=== PATIENT | female | born 1975 | race Caucasian/White ===

== ENCOUNTER 2021-01-06 21:26 | Emergency (ER) | payer OTHER ==
[~2021-01-06] VITALS: Ht 160 cm; Wt 59.9 kg
[~2021-01-06 21:26] MED LIST: CEPH-350 PO; HYDR-3194 PO; INSU100V8 SQ; LOSA1TAB22 PO; METF10007 PO
[2021-01-06 22:06] VITALS: BP 171/128
[2021-01-06] MEDS ORDERED: ZOFRAN ONE (22:22)
[2021-01-06 22:24] LABS: BASOPHIL # 0.1 10^3/uL (0.0-0.1); BASOPHIL % 0.4 % (0.0-0.2); EOSINOPHIL # 0.1 10^3/uL (0.0-0.2); EOSINOPHIL % 0.8 % (0.0-5.0); LYMPHOCYTES # 3.92 10^3/uL1 (1.0-4.8); LYMPHOCYTES % 30.4 % (24.0-44.0); MEAN CORP HGB 27.3 pg (26-34); MONOCYTES # 0.5 10^3/uL (0.3-0.8); MONOCYTES % 3.9 % (5.0-12.0); NEUTROPHIL # 8.3 10^3/uL (1.8-7.7); NEUTROPHILS % 64.3 % (41.0-85.0); PLATELET COUNT 597 10^3/uL (150-400); RED CELL DISTRIBUTION WIDTH 14.6 % (11.5-14.5)
--- NOTE | 2021-01-06 22:25 | ER.PDOC ---
General Chief Complaint: Nausea,Vomiting,Diarrhea Stated Complaint: VOMITING Time seen by MD: 22:22 Source: patient Exam Limitations: no limitations History of Present Illness Initial Comments , Nausea/vomiting and abdominal pain for the 3 days. No fever or chills. Severity/Quality: moderate, burning Abdominal Pain Onset Location: Periumbilical Associated Symptoms (vomiting): freq vomitng Allergies: Coded Allergies: cephalexin (Verified Allergy, Unknown, RASH, HIVES, 08/29/20) clindamycin (Verified Allergy, Unknown, 08/25/20) REACTION UNKNOWN Home Meds Active Scripts Cephalexin (KEFLEX) 500 Mg Capsule, 500 MG PO TID for 7 Days Prov:TIMO SLOAN MD 07/26/20 Insulin Glargine,Hum.rec.anlog (LANTUS) 100 Unit/1 Ml Vial, 25 UNIT SQ BID for 14 Days, #1 VIAL Prov:TIMO SLOAN MD 07/26/20 Hydralazine Hcl (HYDRALAZINE HCL) 25 Mg Tablet, 50 MG PO TID for 30 Days, #90 TAB Prov:TIMO SLOAN MD 07/26/20 Reported Medications Metformin Hcl (METFORMIN HCL) 1,000 Mg Tablet, 1000 MG PO BID 04/25/13 Losartan/Hydrochlorothiazide (LOSARTAN-HCTZ 100-25 MG TAB) 1 Each Tablet, 1 EACH PO DAILY 04/25/13 Vital Signs First Vital Signs Date Time Temp Pulse Resp B/P (MAP) Pulse Ox O2 Delivery O2 Flow Rate FiO2 01/06/21 22:06 97.7 111 18 99 Last Vital Signs Date Time Temp Pulse Resp B/P (MAP) Pulse Ox O2 Delivery O2 Flow Rate FiO2 01/06/21 22:06 97.7 111 18 99 Past Medical History Medical History: no pertinent history Surgical History: Family History Significant Family History: no pertinent family hx Social History Smoking: non-smoker Alcohol Use: none Drug Use: none Constitutional: no symptoms reported EENTM: no symptoms reported Respiratory: no symptoms reported Cardiovascular: no symptoms reported Gastrointestinal: see HPI Genitourinary: no symptoms reported All Other Systems: Reviewed and Negative Physical Exam General Appearance: No Apparent Distress, WD/WN Neck: Non-Tender, Full Range of Motion, Supple, Normal Inspection Respiratory: chest non-tender, lungs clear, normal breath sounds, no respiratory distress, no accessory muscle use Cardiovascular: Normal Peripheral Pulses, Regular Rate, Rhythm, No Edema, No Gallop, No JVD, No Murmur, Tachycardia Gastrointestinal: Normal Bowel Sounds, No Organomegaly, No Pulsatile Mass, Tenderness (mid abdomen) Back: Normal Inspection, No CVA Tenderness, No Vertebral Tenderness Extremities: Normal Range of Motion, Non-Tender, Normal Inspection, No Pedal Edema, No Calf Tenderness, Normal Capillary Refill, Pelvis Stable 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, No Motor/Sensory Deficits, Alert, Normal Mood/Affect, Oriented x 3 Skin: Normal Color, Warm/Dry Lymphatic: No Adenopathy Results/Orders Results/Orders Orders - DARON FERNÁNDEZ MD Cbc With Auto Diff (01/06/21 22:18) Comprehensive Metabolic Panel (01/06/21 22:18) Lipase (01/06/21 22:18) Urinalysis (01/06/21 22:18) Ct Abd/Pelvis Wo Iv Contrast (01/06/21 22:18) Lactic Acid(Ml) (01/06/21 22:18) Hcg Qualitative Serum (01/06/21 22:18) Ondansetron Hcl/Pf (Zofran) (01/06/21 22:22) 0.9 % Sodium Chloride (Ns 1000ml) (01/06/21 22:38) Ondansetron Hcl/Pf (Zofran) (01/06/21 22:38) Urine Culture (01/07/21 00:00) Vital Signs Date Time Temp Pulse Resp B/P (MAP) Pulse Ox O2 Delivery O2 Flow Rate FiO2 01/06/21 22:06 97.7 111 18 99 01/06/21 22:06 97.7 111 18 99 Administered Medications Medications (Trade) Dose Ordered Sig/Nora Route PRN Reason Start Time Stop Time Status Last Admin Dose Admin Ondansetron HCl (Zofran) 4 mg STAT STAT IV 01/06/21 22:38 01/06/21 22:40 DC 01/06/21 22:38 4 MG Sodium Chloride 1,000 ml @ 1,200 mls/hr Q50M STAT IV 01/06/21 22:38 01/06/21 23:27 DC 01/06/21 22:43 1,200 MLS/HR Laboratory Tests Test 01/06/21 00:00 01/06/21 21:48 Urine Collection Type CCMS Urine Color YELLOW Urine Appearance TURBID Urine Bilirubin NEGATIVE (NEGATIVE) Urine Ketones 15 mg/dL (NEGATIVE) H Urine Specific [place] 1.025 (1.005-1.030) Urine pH 5.5 (4.5-8.0) Urine Protein 100 mg/dL (NEGATIVE) H Urine Urobilinogen 0.2 E.U./dL (0.2) Urine Nitrate NEGATIVE (NEGATIVE) Urine Leukocyte Esterase NEGATIVE (NEGATIVE) Urine Glucose (Auto)(UA) 500 (NEGATIVE) H Urine Blood NEGATIVE (NEGATIVE) Urine RBC NONE SEEN RBC/HPF (NONE Urine WBC 0-2 WBC/HPF (0-2) Urine Squamous Epithelial Cells FEW #/HPF (FEW) Urine Amorphous Sediment MODERATE (NONE SEEN) Urine Bacteria MODERATE (NONE SEEN) H White Blood Count 12.9 10^3/uL (4.5-11.0) H Red Blood Count 4.65 10^6/uL (4.00-5.20) Hemoglobin 12.7 g/dL (12.0-15.0) Hematocrit 38.6 % (36.0-46.0) Mean Corpuscular Volume 83.0 fL (78-100) Mean Corpuscular Hemoglobin 27.3 pg (26-34) Mean Corpuscular Hemoglobin Concent 32.9 g/dL (33-36.5) L Red Cell Distribution Width 14.6 % (11.5-14.5) H Platelet Count 597 10^3/uL (150-400) H Mean Platelet Volume 10.6 fL (7.8-11.0) Neutrophils (%) (Auto) 64.3 % (41.0-85.0) Lymphocytes (%) (Auto) 30.4 % (24.0-44.0) Monocytes (%) (Auto) 3.9 % (5.0-12.0) L Neutrophils # (Auto) 8.3 10^3/uL (1.8-7.7) H Lymphocytes # (Auto) 3.92 10^3/uL1 (1.0-4.8) Monocytes # (Auto) 0.5 10^3/uL (0.3-0.8) Absolute Immature Granulocyte (auto 0.02 10^3 u/L (0-2) Absolute Eosinophils (auto) 0.1 10^3/uL (0.0-0.2) Immature Granulocytes % 0.20 % (0.00-0.50) Eosinophils % 0.8 % (0.0-5.0) Basophils % 0.4 % (0.0-0.2) H Basophils # 0.1 10^3/uL (0.0-0.1) Sodium Level 135 mmol/L (132-145) Potassium Level 4.2 mmol/L (3.6-5.2) Chloride Level 98.0 mmol/L (96-109) Carbon Dioxide Level 24.3 mmol/L (20.0-32) Anion Gap 16.9 Blood Urea Nitrogen 22 mg/dL (7-18) H Creatinine 1.43 mg/dL (0.59-1.40) H Estimated GFR () 48.0 (>/=60) Est GFR (CKD-EPI)(Non-Afr Pakistani) 39.7 (>/=60) BUN/Creatinine Ratio 15.0 Glucose Level 270 mg/dL (70-110) H Calcium Level 9.6 mg/dL (8.4-10.5) Total Bilirubin 0.4 mg/dL (0.2-1.0) Aspartate Amino Transferase (AST) 13 U/L (0-35) Alanine Aminotransferase (ALT) 26 U/L (12-78) Alkaline Phosphatase 125 U/L (50-136) Total Protein 8.7 g/dL (6.4-8.2) H Albumin 4.4 g/dL (3.4-5.0) Globulin 4.3 Albumin/Globulin Ratio 1.023 Lipase 89 U/L (114-286) L Serum HCG, Qualitative NEGATIVE (NEGATIVE) Progress Progress CT abdomen/pelvis: Stable nonobstructive right renal calculus. No hydronephrosis. 2. Concentric wall thickening of the urinary bladder. Correlate with urinalysis to exclude infectious cystitis. 3. Otherwise no acute findings in the abdomen or pelvis within the constraints of noncontrast technique. 4. Appendicolith noted without evidence of acute appendicitis. Other findings as above. Reviewed CT results and labs with the patient. She voiced understanding. She is feeling better after she had IV fluids and Zofran. Her nausea has resolved. She is ready to go home. She will also be treated for UTI. ER DEPART Departure Time of Disposition: 00:24 Disposition: 01 HOME / SELF CARE / HOMELESS Impression: Primary Impression: Nonspecific abdominal pain Additional Impressions: UTI (urinary tract infection) Hyperglycemia Condition: Improved Referrals: RUEL PEACOCK ZIGZAG TUNNEL ELASTIC OPERATOR (PCP) PRIMARY CARE PROVIDER Additional Instructions: Ciprofloxacin Start feeding with clear liquids and advance diet as tolerated Continue with antiemetic medication at home Follow-up with your PCP in 2 to 3 days Return to ED if worsening symptoms or concerns Duration or Time Spent with Pa: 60 min Problem Qualifiers Additional Impressions: UTI (urinary tract infection) Urinary tract infection type: site unspecified Hematuria presence: with hematuria Qualified Codes: N39.0 - Urinary tract infection, site not specified; R31.9 - Hematuria, unspecified DARON FERNÁNDEZ MD Jan 06, 2021 22:25
[2021-01-06 22:36] LABS: CALCIUM 9.6 mg/dL (8.4-10.5); CARBON DIOXIDE 24.3 mmol/L (20.0-32)
[2021-01-06] MEDS ORDERED: ZOFRAN IV STA (22:38)
[2021-01-06] MEDS ORDERED: NS 1000ML 1,000 ML IV STA (22:38)
--- NOTE | 2021-01-06 22:39 | NUR ---
Pt provided with cup for urine sample. States that she does not have to go at this time.
--- NOTE | 2021-01-06 23:09 | DIREP ---
PROCEDURE:CT ABDOMEN/PELVIS W/O CONTRAST COMPARISON:[facility], CT, CT ABD/PELVIS W/O, 07/21/2020, 07:53 PM. INDICATIONS:Mid abdominal pain TECHNIQUE:Axial images were created through the abdomen and pelvis without intravenous contrast material. No oral contrast was administered. Sagittal and coronal reconstructions were performed from source images. FINDINGS: LUNG BASES:Normal. No visible pulmonary or pleural disease. LIVER:Normal. No significant liver lesions are identified. BILIARY:Normal. No visible dilatation or calcification. PANCREAS:Normal. No lesion, fluid collection, ductal dilatation, or atrophy. SPLEEN:Normal. No enlargement or focal lesion. ADRENALS:Normal. No mass or enlargement. URINARY TRACT:There is a stable 3 mm nonobstructive calculus in the lower pole the right kidney. No left renal calculi or ureteral calculi are seen. No hydronephrosis. There is concentric wall thickening of the urinary bladder. AORTA/VASCULAR:Normal. No aneurysm. RETROPERITONEUM:Normal. No mass or adenopathy. BOWEL/MESENTERY:The appendix is visualized and contains an appendicolith but otherwise appears normal. There is no intestinal obstruction, free fluid, free air or mesenteric inflammatory changes. ABDOMINAL WALL:Normal. No mass or hernia. PELVIC ORGANS:Normal. No visible mass. Pelvic organs appropriate for patient age. Surgical clips from prior tubal ligation are again noted. BONES:Normal for age. No bony lesion or acute fracture. OTHER:Negative. CONCLUSION: 1. Stable nonobstructive right renal calculus. No hydronephrosis. 2. Concentric wall thickening of the urinary bladder. Correlate with urinalysis to exclude infectious cystitis. 3. Otherwise no acute findings in the abdomen or pelvis within the constraints of noncontrast technique. 4. Appendicolith noted without evidence of acute appendicitis. Other findings as above. Dictated by: Yobany Joseph M.D. on 01/06/2021 at 11:01 PM
--- NOTE | 2021-01-06 23:58 | NUR ---
Pt has been to the restroom but has not been able to void. RN to straight cath pt for urine. Last thing needed in pt workup.
[2021-01-07 00:15] LABS: BILIRUBIN,URINE NEGATIVE (NEGATIVE); UA COLOR YELLOW
[2021-01-07 00:16] LABS: UROBILINOGEN,URINE 0.2 E.U./dL (0.2)
[2021-01-07] MEDS ORDERED: CIPRO PO STA (00:22)
[2021-01-07] MEDS ORDERED: CIPRO ONE (00:27)
--- NOTE | 2021-01-07 00:30 | NUR ---
IV DC'D TIP INTACT, NO BLEEDING
[2021-01-07 00:35] VITALS: BP 158/62
== END 2021-01-07 00:35 | disposition home or self-care (01) ==
LOC: ER 21:26
DX: N39.0 Urinary tract infection, site not specified (principal); R73.9 Hyperglycemia, unspecified; Z79.899 Other long term (current) drug therapy; Z88.1 Allergy status to other antibiotic agents
CPT/HCPCS: 36415; 74176; 80053; 81001; 83605; 83690; 84703; 85025; 87086; 96361; 96374; 99284; J2405

== ENCOUNTER 2021-06-07 08:07 | Emergency (ER) | payer OTHER ==
[~2021-06-07] VITALS: Ht 160 cm; Wt 61.2 kg
[2021-06-07 08:23] VITALS: BP 209/142
--- NOTE | 2021-06-07 08:30 | NUR ---
ARRIVAL PATIENT ARRIVED TO [facility] AMBULATORY, C/O POSSIBLE URINARY TRACT INFECTION FOR THE PAST ONE WEEK, HAS BEEN ATTEMPTING TO TREAT HERSELF AT HOME WITH MINIMAL RELIEF, CAME TO THE ED FOR EVAL, DOCTOR REYEZ TO THE ROOM TO SEE PATIENT.
--- NOTE | 2021-06-07 08:35 | ER.PDOC ---
General Chief Complaint: Female Urogenital Problems Stated Complaint: NAUSEA TRAVEL OUT OF US: No Time seen by MD: 08:29 History of Present Illness Initial Comments 45-year-old female presents for evaluation of lower abdominal discomfort associated with nausea, vomiting. History of urinary tract infections. Symptoms have been present for 1 week. Last kidney stone was several years ago. Attempted to take nausea medicine at home but had emesis shortly thereafter. Nothing seems to make it better or worse. No reported fevers. No other complaints at this time. Allergies: Coded Allergies: cephalexin (Verified Allergy, Unknown, RASH, HIVES, 08/29/20) clindamycin (Verified Allergy, Unknown, 08/25/20) REACTION UNKNOWN Home Meds Active Scripts Cephalexin (KEFLEX) 500 Mg Capsule, 500 MG PO TID for 7 Days Prov:TIMO SLOAN MD 07/26/20 Insulin Glargine,Hum.rec.anlog (LANTUS) 100 Unit/1 Ml Vial, 25 UNIT SQ BID for 14 Days, #1 VIAL Prov:TIMO SLOAN MD 07/26/20 Hydralazine Hcl (HYDRALAZINE HCL) 25 Mg Tablet, 50 MG PO TID for 30 Days, #90 TA B Prov:TIMO SLOAN MD 07/26/20 Reported Medications Metformin Hcl (METFORMIN HCL) 1,000 Mg Tablet, 1000 MG PO BID 04/25/13 Losartan/Hydrochlorothiazide (LOSARTAN-HCTZ 100-25 MG TAB) 1 Each Tablet, 1 EACH PO DAILY 04/25/13 Past Medical History Medical History: diabetes, hypertension Surgical History: Social History Alcohol Use: none Drug Use: none Reviewed Nursing Reviewed: Vital Signs, Abn. Noted, Nursing Assessment Review of Systems Constitutional: see HPI EENTM: no symptoms reported Respiratory: no symptoms reported Cardiovascular: no symptoms reported Gastrointestinal: see HPI Genitourinary: see HPI Musculoskeletal: no symptoms reported Skin: no symptoms reported Psychiatric/Neurological: no symptoms reported Hematologic/Lymphatic: no symptoms reported Immunological/Allergic: no symptoms reported All Other Systems: Reviewed and Negative Physical Exam General Appearance: No Apparent Distress, WD/WN EENT: eyes nml inspection, nml ENT inspection Neck: Non-Tender, Full Range of Motion Respiratory: chest non-tender, lungs clear, normal breath sounds CVS: reg rate & rhythm, no murmur, no gallop, pulses nml Gastrointestinal: Normal Bowel Sounds, No Organomegaly, Tenderness (Mild suprapubic tenderness noted.) Back: Normal Inspection, No CVA Tenderness, No Vertebral Tenderness Extremities: Normal Range of Motion, Non-Tender, Normal Inspection Neurologic/Psychiatric: 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, No Motor/Sensory Deficits Skin: Normal Color, Warm/Dry Lymphatic: No Adenopathy Results/Orders Results/Orders Orders - PATRICK REYEZ DO Urinalysis (06/07/21 08:16) Urine Culture (06/07/21 08:30) Sulfamethoxazole/Trimethoprim (Bactrim D (06/07/21 09:05) Ondansetron (Zofran Odt) (06/07/21 09:09) Vital Signs Date Time Temp Pulse Resp B/P (MAP) Pulse Ox O2 Delivery O2 Flow Rate FiO2 06/07/21 08:23 98.3 114 18 06/07/21 08:23 98.3 114 18 209/142 (164) 100 Room Air 06/07/21 08:23 98.3 114 18 100 Laboratory Tests Test 06/07/21 08:30 Urine Collection Type UNKNOWN Urine Color YELLOW Urine Appearance CLOUDY Urine Bilirubin NEGATIVE (NEGATIVE) Urine Ketones 1+ (NEGATIVE) H Urine Specific [place] 1.020 (1.005-1.030) Urine pH 5.5 (4.5-8.0) Urine Protein 2+ (NEGATIVE) H Urine Urobilinogen 0.2 E.U./dL (0.2) Urine Nitrate NEGATIVE (NEGATIVE) Urine Leukocyte Esterase 1+ (NEGATIVE) H Urine Glucose (Auto)(UA) >=1000 mg/dL (NEGATIVE) H Urine Blood TRACE-INTACT (NEGATIVE) H Urine RBC 0-2 RBC/HPF (NONE SEEN) Urine WBC TooNumerousToCount WBC/HPF (0-2) Urine Squamous Epithelial Cells MODERATE (<=FEW) Urine Bacteria MANY (NONE SEEN) H Progress Progress Patient with gross infected urine. Will place on oral antibiotics, antiemetics have been prescribed. Recommended follow-up with primary care doctor. ER DEPART Departure Time of Disposition: 09:14 Disposition: 01 HOME / SELF CARE / HOMELESS Impression: Primary Impression: UTI (urinary tract infection) Condition: Improved Referrals: RUEL PEACOCK CAREER DEVELOPMENT ENGINEER (PCP) PRIMARY CARE PROVIDER Duration or Time Spent with Pa: 20 Problem Qualifiers Primary Impression: UTI (urinary tract infection) Urinary tract infection type: acute cystitis Hematuria presence: without hematuria Qualified Codes: N30.00 - Acute cystitis without hematuria PATRICK REYEZ DO Jun 07, 2021 08:35
[2021-06-07 08:45] LABS: BILIRUBIN,URINE NEGATIVE (NEGATIVE); UROBILINOGEN,URINE 0.2 E.U./dL (0.2)
[2021-06-07 09:07] VITALS: BP 206/130
--- NOTE | 2021-06-07 09:08 | NUR ---
BLOOD PRESSURE NOTIFIED DOCTOR REYEZ OF PATIENT INCREASED BLOOD PRESSURE, DENIES THE NEED TO TREAT AT THIS TIME.
[2021-06-07] MEDS ORDERED: ZOFRAN ODT ONE (09:09)
[2021-06-07] MEDS ORDERED: BACTRIM DS ONE (09:09)
[2021-06-07] MEDS: BACTRIM DS PO STA (09:09)
[2021-06-07] MEDS: ZOFRAN ODT SL STA (09:10)
== END 2021-06-07 09:22 | disposition home or self-care (01) ==
LOC: ER 08:07
DX: N39.0 Urinary tract infection, site not specified (principal); I10 Essential (primary) hypertension; E11.9 Type 2 diabetes mellitus without complications; Z79.4 Long term (current) use of insulin; Z79.899 Other long term (current) drug therapy; Z87.440 Personal history of urinary (tract) infections; Z87.442 Personal history of urinary calculi; Z88.1 Allergy status to other antibiotic agents
CPT/HCPCS: 81001; 87077; 87086; 99283

== ENCOUNTER 2021-12-04 22:43 | Inpatient (IN) | payer OTHER ==
[~2021-12-04] VITALS: Ht 160 cm; Wt 76.7 kg
[2021-12-04 23:09] VITALS: BP 199/81
[2021-12-04] MEDS ORDERED: LACTATED RINGERS IV STA (23:20)
--- NOTE | 2021-12-04 23:20 | ER.PDOC ---
General Chief Complaint: Back Pain/Injury Stated Complaint: LOW BACK PAIN, CHILLS Time seen by MD: 23:16 Source: patient, family Exam Limitations: no limitations History of Present Illness Initial Comments 45F with Dysuria, freq, urgency, Rt Flank Pain with fever x 1 day. Hx Recurrent UTI's and Rt renal calculi. Nausea and emesis x 1. No diarrhea. Timing/Duration: constant, yesterday Severity/Quality: mild, moderate Radiation: other Associated Symptoms: fever Prior symptoms/Treatment: Similar symptoms previous Allergies: Coded Allergies: cephalexin (Verified Allergy, Unknown, RASH, HIVES, 08/29/20) clindamycin (Verified Allergy, Unknown, 08/25/20) REACTION UNKNOWN Home Meds Active Scripts Cephalexin (KEFLEX) 500 Mg Capsule, 500 MG PO TID for 7 Days Prov:TIMO SLOAN MD 07/26/20 Insulin Glargine,Hum.rec.anlog (LANTUS) 100 Unit/1 Ml Vial, 25 UNIT SQ BID for 14 Days, #1 VIAL Prov:TIMO SLOAN MD 07/26/20 Hydralazine Hcl (HYDRALAZINE HCL) 25 Mg Tablet, 50 MG PO TID for 30 Days, #90 TAB Prov:TIMO SLOAN MD 07/26/20 Reported Medications Metformin Hcl (METFORMIN HCL) 1,000 Mg Tablet, 1000 MG PO BID 04/25/13 Losartan/Hydrochlorothiazide (LOSARTAN-HCTZ 100-25 MG TAB) 1 Each Tablet, 1 EACH PO DAILY 04/25/13 Past Medical History Medical History: diabetes, GERD, hypertension, other Surgical History: Family History Significant Family History: no pertinent family hx Social History Smoking: non-smoker Drug Use: none Reviewed Nursing Reviewed: Vital Signs, Abn. Noted, Nursing Assessment Review of Systems Constitutional: denies no symptoms reported, denies see HPI, denies chills, denies diaphoresis, denies fever, denies malaise, denies weakness, denies other EENTM: denies no symptoms reported, denies see HPI, denies eye pain, denies blurred vision, denies tearing, denies double vision, denies ear pain, denies ear discharge, denies nose pain, denies nose congestion, denies throat pain, denies throat swelling, denies mouth pain, denies mouth swelling, denies other Respiratory: denies no symptoms reported, denies see HPI, denies cough, denies orthopnea, denies shortness of breath, denies stridor, denies wheezing, denies other Cardiovascular: denies no symptoms reported, denies see HPI, denies chest pain, denies edema, denies palpitations, denies syncope, denies other Gastrointestinal: nausea, vomiting Genitourinary: see HPI, dysuria, frequency, pain Musculoskeletal: see HPI Skin: denies no symptoms reported, denies see HPI, denies change in color, denies change in hair/nails, denies dryness, denies lesions, denies lumps, denies rash, denies other Psychiatric/Neurological: denies no symptoms reported, denies see HPI, denies anxiety, denies depressed, denies emotional problems, denies headache, denies numbness, denies paresthesia, denies pre-existing deficit, denies seizure, denies tingling, denies tremors, denies weakness, denies other All Other Systems: Reviewed and Negative Physical Exam General Appearance: Mild Distress HEENT: PERRL/EOMI, Normal ENT Inspection Neck: Non-Tender Cardiovascular/Respiratory: Regular Rate, Rhythm Gastrointestinal: Normal Bowel Sounds, Soft Back: Normal Inspection, CVA Tenderness (R) Extremities: No Evidence of Injury Neuro/Psych: Alert, esol teacher nml/symmetrical, mood/effect nml Skin: Normal Color Results/Orders Results/Orders Orders - ROXIE JOHN MD Ringer's Solution,Lactated (Lactated Rin (12/04/21 23:29) Urinalysis (12/04/21 23:20) Ringer's Solution,Lactated (Lactated Rin (12/04/21 23:20) Ketorolac Tromethamine (Toradol) (12/04/21 23:30) Cbc W/O Diff (12/04/21 23:20) Comprehensive Metabolic Panel (12/04/21 23:20) Ceftriaxone Sodium (Rocephin) (12/04/21 23:30) Ketorolac Tromethamine (Toradol) (12/04/21 23:29) Ceftriaxone Sodium (Rocephin) (12/04/21 23:30) 0.9 % Sodium Chloride (Ns 100ml) (12/04/21 23:31) Hcg Urine (12/04/21 23:35) Urine Culture (12/04/21 23:35) Ringer's Solution,Lactated (Lactated Rin (12/05/21 00:03) Insulin Regular, Human (Humulin R) (12/05/21 00:19) Drug Scrn Med W Confirmation (12/05/21 00:22) Ct Abd/Pelvis Wo Iv Contrast (12/04/21 23:20) Insulin Regular, Human (Humulin R) (12/05/21 00:31) Covid19 Antigen Demetra Hazel (12/05/21 00:51) Vital Signs Date Time Temp Pulse Resp B/P (MAP) Pulse Ox O2 Delivery O2 Flow Rate FiO2 12/05/21 01:10 101.1 124 20 147/84 (105) 99 Room Air* 0 21 12/05/21 00:10 101.1 125 20 149/82 (104) 94 Room Air* 0 21 12/04/21 23:09 103.0 134 22 12/04/21 23:09 103.0 134 22 96 12/04/21 23:09 103.0 134 22 199/81 (120) 96 Room Air* 0 21 Administered Medications Medications (Trade) Dose Ordered Sig/Nora Route PRN Reason Start Time Stop Time Status Last Admin Dose Admin Ceftriaxone Sodium 1000 mg/ Sodium Chloride 100 ml @ 200 mls/hr OT ONCE IV 12/04/21 23:30 12/04/21 23:59 DC 12/04/21 23:54 200 MLS/HR Insulin Human Regular (Humulin R) 12 unit STAT STAT IV 12/05/21 00:31 12/05/21 00:34 DC 12/05/21 00:36 12 UNIT Ketorolac Tromethamine (Toradol) 30 mg OT ONCE IV 12/04/21 23:30 12/04/21 23:31 DC 12/04/21 23:53 30 MG Laboratory Tests Test 12/04/21 23:35 12/05/21 00:00 12/05/21 00:52 White Blood Count 31.7 10^3/uL (4.5-11.0) *H Red Blood Count 3.68 10^6/uL (4.00-5.20) L Hemoglobin 7.7 g/dL (12.0-15.0) L Hematocrit 25.9 % (36.0-46.0) L Mean Corpuscular Volume 70.4 fL (78-100) L Mean Corpuscular Hemoglobin 20.9 pg (26-34) L Mean Corpuscular Hemoglobin Concent 29.7 g/dL (33-36.5) L Red Cell Distribution Width 17.8 % (11.5-14.5) H Platelet Count 791 10^3/uL (150-400) H Mean Platelet Volume 9.5 fL (7.8-11.0) Urine Collection Type RANDOM Urine Color YELLOW Urine Appearance TURBID Urine Bilirubin NEGATIVE (NEGATIVE) Urine Ketones TRACE (NEGATIVE) H Urine Specific [place] 1.010 (1.005-1.030) Urine pH 5.5 (4.5-8.0) Urine Protein 2+ (NEGATIVE) H Urine Urobilinogen 0.2 E.U./dL (0.2) Urine Nitrate POSITIVE (NEGATIVE) H Urine Leukocyte Esterase 1+ (NEGATIVE) H Urine Glucose (Auto)(UA) 500 mg/dL (NEGATIVE) H Urine Blood 1+ (NEGATIVE) H Urine RBC 0-2 RBC/HPF (NONE SEEN) Urine WBC TooNumerousToCount WBC/HPF (0-2) Urine Squamous Epithelial Cells MODERATE (<=FEW) Urine Bacteria MANY (NONE SEEN) H Urine HCG, Qualitative NEGATIVE (NEGATIVE) Sodium Level 126 mmol/L (132-145) L Potassium Level 4.4 mmol/L (3.6-5.2) Chloride Level 89.0 mmol/L (96-109) L Carbon Dioxide Level 22.0 mmol/L (20.0-32) Anion Gap 19.4 Blood Urea Nitrogen 27 mg/dL (7-18) H Creatinine 1.68 mg/dL (0.59-1.40) H Estimated GFR () 39.9 (>/=60) Est GFR (CKD-EPI)(Non-Afr Faroese) 32.9 (>/=60) BUN/Creatinine Ratio 16.0 Glucose Level 462 mg/dL (70-110) *H Calcium Level 8.7 mg/dL (8.4-10.5) Total Bilirubin 0.5 mg/dL (0.2-1.0) Aspartate Amino Transferase (AST) 8 U/L (0-35) Alanine Aminotransferase (ALT) 20 U/L (12-78) Alkaline Phosphatase 166 U/L (50-136) H Total Protein 7.6 g/dL (6.4-8.2) Albumin 3.1 g/dL (3.4-5.0) L Globulin 4.5 Albumin/Globulin Ratio 0.688 Urine Opiates Screen NEGATIVE (c/o300ng/mL) Urine Methadone Screen NEGATIVE (c/o300ng/mL) Urine Barbiturates Screen NEGATIVE (c/o200ng/mL) Urine Phencyclidine Screen NEGATIVE (c/o 25ng/mL) Ur Amphetamine/Methamphetamine NEGATIVE (gq4885lb/mL) Urine MDMA Screen (Ecstasy) NEGATIVE (c/o300ng/mL) Urine Benzodiazepines Screen NEGATIVE (c/o200ng/mL) Urine Cocaine Metabolite Screen NEGATIVE (c/o300ng/mL) Ur Tetrahydrocannabinol (THC) Scrn NEGATIVE (c/o 50ng/mL) Segmented Neutrophils 91 % (31-76) H Lymphocytes 3 % (25-36) L Monocytes 6 % (3-9) Platelet Estimate INCREASED Platelet Morphology NORMAL SARS-CoV-2 Antigen (Rapid) NEGATIVE (NEGATIVE) Progress Progress Temp 103 on admit to ER and 101.7 after 30 min. Labs WBC 31. H/H low 7/25. Platelets 791 Chem 12 shows Hyponatremia 126. Anion Gap 19. Glucose 476 UA suggestive of UTI. Urine and blodd Cultures ordered CT shows bilat mild hydronephrosis and stable Rt renal calculi. Pt clinically stable however with Fever and Leucocytosis will admit for further care. Case d/w Dr Schumacher (hospitalist) A - Pyelonephritis with Mild Hydroureters. r/o Sepsis Anemia DM with Hyperglycemia Azotemia Hyponatremia P - Pt was given 2 lit LR IVF. Rocephin 1 gm IV. Humulin R 12u IV Admit to Inpatient for further care under Dr Schumacher EKG/XRAY/CT/US CT Comments: bilat hydronephrosis, Rt renal calculi ER DEPART Departure Time of Disposition: 01:39 Disposition: 09 ADMITTED INPATIENT Impression: Primary Impression: Pyelonephritis Additional Impressions: Anemia Hyponatremia Azotemia Condition: Stable Referrals: RUEL PEACOCK FAMILY COURT COUNSELLOR (PCP) PRIMARY CARE PROVIDER Duration or Time Spent with Pa: 3 hrs Return to Work/School Can a patient return to work?: No Can a patient return to school: No Problem Qualifiers ROXIE JOHN MD December 04, 2021 23:20
[2021-12-04] MEDS ORDERED: LACTATED RINGERS 1,000 ML ONE (23:29)
[2021-12-04] MEDS ORDERED: TORADOL ONE (23:29)
[2021-12-04] MEDS ORDERED: TORADOL IV ONE (23:30)
[2021-12-04] MEDS ORDERED: ROCEPHIN 1,000 MG in NS 100ML 100 ML IV ONE (23:30)
[2021-12-04] MEDS ORDERED: ROCEPHIN ONE (23:30)
[2021-12-04] MEDS ORDERED: NS 100ML 100 ML IV ONE (23:31)
[2021-12-04 23:52] LABS: BILIRUBIN,URINE NEGATIVE (NEGATIVE); UROBILINOGEN,URINE 0.2 E.U./dL (0.2)
[2021-12-04 23:58] LABS: MEAN CORP HGB 20.9 pg (26-34); RED CELL DISTRIBUTION WIDTH 17.8 % (11.5-14.5)
[2021-12-05] VITALS (8 sets, daily range): BP systolic 114–165; BP diastolic 77–95
[2021-12-05] MEDS ORDERED: LACTATED RINGERS 1,000 ML ONE (00:03)
--- NOTE | 2021-12-05 00:17 | NUR ---
TO CT PATIENT TO CT VIA WHEELCHAIR
[2021-12-05] MEDS ORDERED: HUMULIN R ONE (00:19)
[2021-12-05] MEDS ORDERED: HUMULIN R IV STA (00:31)
[2021-12-05 00:36] LABS: LYMPHOCYTE 3 % (25-36); MONOCYTE 6 % (3-9); SEGMENTED NEUTROPHILS 91 % (31-76)
--- NOTE | 2021-12-05 01:24 | DIREP ---
PROCEDURE:CT ABDOMEN/PELVIS W/O CONTRAST COMPARISON:[facility], CT, CT ABD/PELVIS W/O, 01/06/2021, 10:47 PM. INDICATIONS:low back pain TECHNIQUE:Axial images were created through the abdomen and pelvis without intravenous contrast material. No oral contrast was administered. Sagittal and coronal reconstructions were performed from source images. FINDINGS: LUNG BASES:Normal. No visible pulmonary or pleural disease. LIVER:Normal. No significant liver lesions are identified. BILIARY:Normal. No visible dilatation or calcification. PANCREAS:Normal. No lesion, fluid collection, ductal dilatation, or atrophy. SPLEEN:Normal. No enlargement or focal lesion. ADRENALS:Normal. No mass or enlargement. URINARY TRACT:There is a stable 2-3 mm nonobstructive calculus in the lower pole the right kidney. No left renal calculi or ureteral calculi are seen. Mild bilateral hydronephrosis. There is moderate distention of the urinary bladder. AORTA/VASCULAR:Normal. No aneurysm. RETROPERITONEUM:Normal. No mass or adenopathy. BOWEL/MESENTERY:The appendix is visualized and appears normal. There is no intestinal obstruction, free fluid, free air or mesenteric inflammatory changes. ABDOMINAL WALL:Normal. No mass or hernia. PELVIC ORGANS:Normal. No visible mass. Pelvic organs appropriate for patient age. Surgical clips from prior tubal ligation are again noted. BONES:Subacute left 6th through 8th rib fracture deformities. No aggressive osseous lesion. OTHER:Noncontrast technique decreases diagnostic sensitivity. CONCLUSION: 1. Mild bilateral hydronephrosis which may be secondary to moderate urinary bladder distension. Stable right lower pole renal calculus. No left renal or ureteral calculi are seen. 2. Otherwise no acute findings in the abdomen or pelvis within the constraints of noncontrast technique. 3. Subacute left rib fracture deformities. Dictated by: Yobany Joseph M.D. on 12/05/2021 at 01:16 AM
--- NOTE | 2021-12-05 01:46 | NUR ---
REPORT TO [facility] GIVEN TO LAUREN PHILLIPS
--- NOTE | 2021-12-05 03:10 | NUR ---
PT IS COMPLAINING OF DISCOMFORT TO LOWER ABDOMEN AND FEELS LIKE BLADDER IS DISTENDED. UPON ASSESSMENT, BLADDER WAS SIGNIFICANTLY DISTENDED. BLADDER SCANNER WAS USED AND FOUND 664MLS. DR HURLEY CALLED AT THIS TIME AND HAS ORDERED A STRAIGHT CATH. ALSO HAS ORDERED MORPHINE 2MG IV Q6 PRN FOR PAIN 7-10.
[2021-12-05] MEDS: MORPHINE SULFATE IV PRN ×2 (06:05→17:41)
--- NOTE | 2021-12-05 06:13 | NUR ---
PT TEMP IS 100.[address] HURLEY WAS CALLED AND HAS ORDERED TYLENOL 650MG PO Q4 PRN FOR FEVER.
[2021-12-05] MEDS ORDERED: TYLENOL PO PRN (06:30)
[2021-12-05] MEDS ORDERED: GABA600T7 PO (07:20)
[2021-12-05] MEDS ORDERED: LISI20TA21 PO (07:20)
[2021-12-05] MEDS ORDERED: INSU300I SQ (07:20)
[2021-12-05] MEDS ORDERED: TYLENOL PO ONE ×2 (08:04→08:30)
--- NOTE | 2021-12-05 08:04 | NUR ---
DR DR BYRD ON UNIT AND NOTIFIED OF TEMP 102.5. RECEIVED ORDER FOR TYLENOL 500MG PO ONE TIME STAT FOR TEMP OVER 100.5.
[2021-12-05] MEDS ORDERED: NS 1000ML 1,000 ML IV ONE ×2 (08:30→09:30)
[2021-12-05] MEDS: LEVAQUIN 100 ML IV SCH (08:47)
[2021-12-05] MEDS: LANTUS SQ SCH (08:47)
--- NOTE | 2021-12-05 09:25 | PCM.HP ---
History of Present Illness Reason for Visit: (1) Pyelonephritis ICD Code: N12 - Tubulo-interstitial nephritis, not specified as acute or chronic SNOMED: 43021305 Hx of Present Illness 45-year-old female with previous history of diabetes, nephrolithiasis, recurrent UTIs, hypertension and diabetic neuropathy presented to ER with complaints of feeling unwell for last 2 days fever starting yesterday associated with severe chills and right-sided abdominal and flank pain. She also had 1 episode of nausea and vomiting at presentation. This was associated with dysuria, frequency, urgency and hesitancy. She denies any chest pain, cough, shortness of breath, headache, seizures, diarrhea or constipation. She endorses having a wound on her right sole of foot for a long time. She was seen in the ER and given 2 L fluid, blood cultures urine culture sent and IV antibiotics started and admitted for further management. Past Medical History PMH-Cardiac: (1) GERD (gastroesophageal reflux disease) ICD Code: K21.9 - Gastro-esophageal reflux disease without esophagitis SNOMED: 150092085 (2) Diabetes ICD Code: E11.9 - Type 2 diabetes mellitus without complications SNOMED: 42550693 (3) Hypertension ICD Code: I10 - Essential (primary) hypertension SNOMED: 41560241 Hx Last Menstrual Period: NOVEMBER 09 Past Family History: (1) CHF (congestive heart failure) ICD Code: I50.9 - Heart failure, unspecified SNOMED: 85970877 (2) CAD (coronary artery disease) ICD Code: I25.10 - Atherosclerotic heart disease of [place] coronary artery without angina pectoris SNOMED: 55546163 (3) Diabetes ICD Code: E11.9 - Type 2 diabetes mellitus without complications SNOMED: 37199099 Past Social History Past Social Hx:Smoke: (1) Does not drink alcohol ICD Code: Z78.9 - Other specified health status SNOMED: 758954757 (2) Does not smoke ICD Code: Z78.9 - Other specified health status SNOMED: 9713933 Travel History [place]OL[place] RISK:Travel to/contact w: No Review of Systems Constitutional: Fever, Chills, Sweats, Weakness, Malaise Eyes: No: Pain, Vision change, Conjunctivae inflammation, Eyelid inflammation, Other, Redness ENT: No: Ear pain, Ear discharge, Nose pain, Nose discharge, Nose congestion, Mouth pain, Mouth swelling, Throat pain, Throat swelling, Other Respiratory: No: Cough, Dry, Shortness of breath, SOB with excertion, Wheezing, Hemoptysis, Pleuritic Pain, Sputum, Wheezing, Other Cardiovascular: No: Chest Pain, Palpitations, Orthopnea, Paroxysmal Noc. Dyspnea, Edema, Lt Headedness, Other Gastrointestinal: Nausea, Vomiting; No: Abdominal Pain, Diarrhea, Constipation, Melena, Hematochezia, Other Genitourinary: Dysuria, Frequency; No Incontinence, No Hematuria, No Retention, No Other Musculoskeletal: No: other, neck pain, shoulder pain, arm pain, back pain, hand pain, leg pain, foot pain Skin: No: Rash, Lesions, Jaundice, Bruising, Other Neurological: No: Weakness, Numbness, Incoordination, Change in speech, Confusion, Seizures, Other Allergies: Coded Allergies: cephalexin (Verified Allergy, Unknown, RASH, HIVES, 08/29/20) clindamycin (Verified Allergy, Unknown, 08/25/20) REACTION UNKNOWN Scheduled Cephalexin (Keflex), 500 MG PO TID Gabapentin (Gabapentin), 1 TAB PO BID, (Reported) Losartan/Hydrochlorothiazide (Losartan-Hctz 100-25 Mg Tab), 1 EACH PO DAILY, (Reported) Metformin Hcl (Metformin Hcl), 1,000 MG PO BID, (Reported) Discontinued Medications Hydralazine Hcl (Hydralazine Hcl), 50 MG PO TID Discontinued Reason: Discontinue Insulin Glargine,Hum.rec.anlog (Lantus), 25 UNIT SQ BID Discontinued Reason: Discontinue Insulin Glargine,Hum.rec.anlog (Toujeo Solostar), 30 UNIT SQ DAILY24, (Reported) Discontinued Reason: Cancel Lisinopril (Lisinopril), 1 TAB PO DAILY, (Reported) Discontinued Reason: HOLD VTE VTE Risk Total Score: >5 VTE Risk Score VTE Risk: Score 0-1 = Low Risk (Aggressive mobilization; early ambulation; no VTE prophylaxis required) Score 2: Moderate Risk (Intermittent/Pneumatic Compression Device OR Lovenox/Heparin/Coumadin) Score 3-4: High Risk (Intermittent/Pneumatic Compression Device AND Lovenox/Heparin/Coumadin) Score > or =5: Highest Risk (Intermittent/Pneumatic Compression Device AND Lovenox/Heparin/Coumadin) Antico:Hep/LMWH/Coum/Xarelto: Yes Mechanical device ordered: No VTE VTE Present on Admission: No Currently receiving anticoagul: No VTE Risk Total Score: >5 Exam Vital Signs Vital Signs Date Time Temp Pulse Resp B/P (MAP) Pulse Ox O2 Delivery O2 Flow Rate FiO2 12/05/21 09:02 100.1 Room Air* 0 21 12/05/21 07:37 120 18 128/80 (96) 93 General Appearance: Alert, Oriented X3, Cooperative, No acute distress HEENT: Atraumatic, PERRLA, EOMI, Mucous membr. moist/pink Respiratory: Clear to auscultation, Normal air movement Cardiovascular: Regular rate, Normal S1, Normal S2, No murmurs Abdominal: Normal bowel sounds, Soft, No hepatospenomegaly, Other (Lower abdominal tenderness mild, no CVA tenderness) Extremities: No clubbing, No cyanosis, No edema, Normal pulses Skin: No rash, No breakdown, No lesions, Breakdown (Wound on right sole of foot) Neuro: Normal speech, Strength at 5/5 X4 ext, Normal tone Psych/Mental Status: Mood NL Assessment/Plan Assessment/Plan Assessment/Plan 45-year-old female with previous history of diabetes, nephrolithiasis, recurrent UTIs, hypertension and diabetic neuropathy presented to ER with complaints of feeling unwell for last 2 days fever starting yesterday associated with severe chills and right-sided abdominal and flank pain associated with dysuria, frequency, urgency and hesitancy. Sepsis: Patient was in sepsis at presentation with fever, tachycardia, WBC count of 31.7 at presentation. She received 2 L IV fluid and IV ceftriaxone 1 g x 1 and was admitted for further management. Acute Pyelonephritis : Given her history of recurrent UTIs, diabetes, nephrolithiasis and symptoms of dysuria, hesitancy, fever and chills she has acute pyelonephritis. We will start her on IV hydration normal saline 100 cc/h in addition to IV levofloxacin 500 mg daily. Her urine and blood cultures were sent from the ER and we will be waiting for the sensitivity results. Right-sided nephrolithiasis and mild bilateral hydronephrosis: On CT scan patient has right-sided 2 to 3 mm stable lower pole renal calculus with mild b ilateral hydronephrosis. Since this is not causing acute obstruction at this time we will set up follow-up appointment with urology at discharge. Patient prefers Dr. Mccann in [place] and we will set up an appointment at the time of discharge to follow-up with him. BRYAN: Patient had creatinine of 1.68 at presentation which is likely higher than her baseline. It is hard to know if it is BRYAN or CKD since baseline creatinine is not known we will repeat it tomorrow to see if it resolves. DM with Hyperglycemia: Patient had very high blood glucose levels of 462 at presentation. Lantus and sliding scale insulin has been started and will be adjusted based on the glucose readings. Hyponatremia: Patient has received IV fluids and we will monitor sodium levels for improvement. Right-sided wound on sole of foot: Wound care will be consulted Depression and previous suicidal ideation history: Psychiatry will be consulted DVT prophylaxis: We will start her on unfractionated heparin 8 hourly due to BRYAN. CODE STATUS: Full code Disposition: Home when ready CARSON BYRD MD December 05, 2021 09:25
[2021-12-05] MEDS: NEURONTIN PO SCH ×2 (09:30→21:16)
[2021-12-05] MEDS: NS 1000ML 1,000 ML IV SCH ×2 (10:00→21:15)
--- NOTE | 2021-12-05 11:12 | NUR ---
SS/PSYCH EVAL: SW VISITED WITH PT REGARDING CONSULT. PT STATED SHE HAS BATTLED WITH DEPRESSION FOR YEARS. PT REPORTS HER SON MOVED OUT IN MAY AND HE WAS HER BEST FRIEND AND IT HAS BEEN HARD BECAUSE SHE DOESN'T TALK TO HIM MUCH. PT REPORTS HE MOVED IN WITH HIS GRANDMOTHER TO HELP HER OUT SINCE HIS GRANDPA RECENTLY PASSED. PT REPORTS HER DECLINE AND HEALTH AND JUST "EVERYTHING CAUGHT UP AT ONCE AND I FELT OVERWHELMED". PT REPORTS SHE HAS HAD PASSIVE SUICIDAL THOUGHTS BUT WOULD NEVER ACT ON IT. PT REPORTS "I HAVE TOO MUCH TO LIVE FOR. I JUST GOT A NEW BABY (KITTEN) AND IN DECEMBER FOR MY SO AND MY 18TH ANNIVERSARY WE ARE FINALLY GOING TO GET ". PT REPORTS SHE HAS A GREAT SUPPORT SYSTEM AND HER SISTER WILL TAKE HER TO [facility] APPOINTMENTS OR WHEREVER SHE NEEDS TO GO. PT REPORTS SHE HAS GOOD RX IN PLACE AT [facility]. PT REPORTS SHE HAS SEEN A PSYCHOLOGIST ONCE IN THE PAST 20+ YEARS AGO BUT IT DIDN'T GO WELL AND HE LIED ON HER AND SHE LOST HER KIDS. PT REPORTS SHE HAS HAD A LOT HAPPEN IN HER LIFE BUT FEELS LIKE SHE IS IN A GOOD PLACE BUT JUST EVERYTHING "HIT AT ONCE". SW PROVIDED COMPLETE COMMUNITY RESOURCE GUIDE LIST AND EDUCATED PT ON NUMEROUS COMMUNITY RESOURCES THAT COULD HELP HER. PT CURRENTLY DENIES SI/HI/AVH AND DOES NOT THINK SHE NEEDS PSYCH SERVICES AT THIS TIME. SW TO CONTINUE TO FOLLOW AND MONITOR SS/PSYCH NEEDS. SHYANNE LET Hedy VASQUES CM AND NURSING STAFF KNOW OF FINDINGS.
[2021-12-05] MEDS: ZESTRIL PO SCH (11:26)
[2021-12-05] MEDS ORDERED: HUMALOG SQ ONE (11:30)
[2021-12-05] MEDS: HUMULIN R SQ SCH ×3 (11:30→21:00)
--- NOTE | 2021-12-05 12:29 | NUR ---
s/s not given per dr recinos
[2021-12-05] MEDS: HEPARIN SQ SCH ×2 (13:50→21:16)
--- NOTE | 2021-12-05 13:58 | NUR ---
DISCHARGE PLAN - SELF CARE W/APPT - PCP & UROLOGY CM VISITED WITH PATIENT THIS AM PRIOR TO ID MEETING AND WITH DR BYRD. PATIENT CURRENTLY [email or web address]@HOME WITH S.O. AND IND WITH ADL - PATIENT SEE'S SCOTTIE PEACOCK NP FOR PCP. PATIENT DENIES HAVING OR NEEDING ANY DME@THIS TIME. DR BYRD REQUESTING PATIENT HAVE F/U APPT WITH UROLOGY AFTER DISCHARGE. PATIENT REQUEST TO SEE UROLOGIST IN [place] - DR VAIL. PATIENT AGREEABLE FOR CM TO MAKE APPT WITH UROLOGIST AND PCP. PATIENT REQUEST CM MAKE F/U APPT AFTER THE FIRST OF THE MONTH DUE TO SHE GETS MONEY@THE FIRST OF THE MONTH AND CAN PAY FOR APPT. CM CONTACTED DR VAIL'S OFFICE IN [place] AND EARLIEST APPT IS JANUARY 23, 2022@1615. APPT SET UP FOR THAT TIME. PATIENT IS ESTABLISHED@DR VAIL'S OFFICE. CM NOTIFIED DR BYRD OF APPT NOT AVAILABLE UNTIL JANUARY [address] BYRD AGREEABLE WITH F/U APPT TIME. CM CONTACTED [facility] AND FOLLOW UP APPT MADE WITH SCOTTIE PEACOCK NP FOR DECEMBER 16, 2021@1020. CM UPDATED PATIENT OF APPT TIMES AND UPDATED PATIENT VISIT REPORT TO INCLUDE APPT'S AND UPDATED PATIENT'S MARKER BOARD IN ROOM. CM WILL CONTINUE TO FOLLOW.
[2021-12-05] MEDS ORDERED: HUMULIN R SQ ONE (14:00)
[2021-12-05] MEDS: TYLENOL PO PRN (19:38)
--- NOTE | 2021-12-05 19:40 | NUR ---
OXYGEN SATURATION AT PM VITALS O2 SAT WAS 79-85% ON ROOM AIR, PLACED ON 2L NC, NOTIFIED RT JACKSON AND DR AMEZCUA. WILL REASSESS @ 1950.
--- NOTE | 2021-12-05 19:58 | NUR ---
OXYGEN REASSESSMENT 96% ON 2L NC AT REASSESSMENT.
--- NOTE | 2021-12-05 20:13 | NUR ---
DR AMEZCUA ORDERS REC 1V CHEST XRAY - STAT. ORDER PLACED BY THIS NURSE. ((NOTIFIED RADIOLOGY. RADIOLOGY HAS 2 PRIOR STAT ORDERS AND WILL BE HERE MARNIE))
--- NOTE | 2021-12-05 20:21 | NUR ---
EDUARDO LUCERO AT BEDSIDE.
--- NOTE | 2021-12-05 21:06 | DIREP ---
PROCEDURE:CHEST 1 VIEW COMPARISON:[facility], CR, XRAY CHEST SINGLE VW, 07/21/2020, 06:11 PM. [facility], CR, XRAY CHEST SINGLE VW, 06/02/2020, 05:35 PM. INDICATIONS:DECREASED OXYGEN SATURATION FINDINGS: LUNGS/PLEURA:Shallow inspiration with crowding of the pulmonary vascular markings. No focal consolidation. No effusions. VASCULATURE:Normal. Unremarkable pulmonary vasculature. CARDIAC:Normal. No cardiac silhouette abnormality or cardiomegaly. MEDIASTINUM:Normal. No visible mass or adenopathy. BONES:Normal. No fracture or visible bony lesion. OTHER:Negative. CONCLUSION:No significant change from the prior radiograph. Stable findings as above. Dictated by: Fidel Crump MD on 12/05/2021 at 09:04 PM
[2021-12-06 00:47] VITALS: BP 140/81
[2021-12-06 04:44] VITALS: BP 195/103
--- NOTE | 2021-12-06 05:00 | NUR ---
B/P CURRENTLY 195/103. NOTIFIED DR AMEZCUA VIA TELEPHONE, REC ORDERS FOR 20MG IV HYDRALAZINE Q6PRN FOR SBP>170 OR DBP>105, FIRST DOSE NOW. ORDERS CARRIED OUT BY THIS NURSE.
[2021-12-06] MEDS: NS 1000ML 1,000 ML IV SCH ×3 (05:12→14:40)
[2021-12-06] MEDS: HEPARIN SQ SCH ×2 (05:12→14:39)
[2021-12-06 05:19] LABS: MEAN CORP HGB 21.2 pg (26-34); RED CELL DISTRIBUTION WIDTH 18.3 % (11.5-14.5)
[2021-12-06 05:24] LABS: CARBON DIOXIDE 22.6 mmol/L (20.0-32)
[2021-12-06] MEDS ORDERED: APRESOLINE IV PRN (05:30)
--- NOTE | 2021-12-06 05:30 | NUR ---
B/P REASSESSMENT POST 20MG IV HYDRALAZINE B/P TRENDING STPEHY 150/91 AT THIS TIME.
[2021-12-06] MEDS: HUMULIN R SQ SCH ×2 (06:53→11:12)
[2021-12-06 07:37] VITALS: BP 144/80
[2021-12-06] MEDS: LANTUS SQ SCH (08:31)
[2021-12-06] MEDS: LEVAQUIN 100 ML IV SCH (08:32)
[2021-12-06] MEDS: NEURONTIN PO SCH (08:33)
[2021-12-06] MEDS: ZESTRIL PO SCH (08:33)
[2021-12-06] MEDS: TYLENOL PO PRN (10:57)
--- NOTE | 2021-12-06 10:59 | NUR ---
tylenol 1000mg po given for temp per prn order
[2021-12-06 11:13] VITALS: BP 164/97
--- NOTE | 2021-12-06 11:50 | NUR ---
REPORT TO GABRIEL MERCADO
[2021-12-06] MEDS ORDERED: VANCOMYCIN 1.25 GM/250 ML BAG 250 ML IV SCH (14:30)
--- NOTE | 2021-12-06 14:38 | PRM.PN ---
Subjective Subjective Date: December 06, 2021 Time: 14:20 Subjective Patient feels subjectively better today and has no active complaints. She again spiked fever up to 102.7 this afternoon. She denies any nausea or vomiting abdominal pain. VTE VTE Risk Total Score: >5 VTE Risk Score VTE Risk: Score 0-1 = Low Risk (Aggressive mobilization; early ambulation; no VTE prophylaxis required) Score 2: Moderate Risk (Intermittent/Pneumatic Compression Device OR Lovenox/Heparin/Coumadin) Score 3-4: High Risk (Intermittent/Pneumatic Compression Device AND Lovenox/Heparin/Coumadin) Score > or =5: Highest Risk (Intermittent/Pneumatic Compression Device AND Lovenox/Heparin/Coumadin) Antico:Hep/LMWH/Coum/Xarelto: Yes Mechanical device ordered: No Review of Systems Constitutional: Fever; No: Chills, Sweats, Weakness, Malaise, Other Eyes: No: Pain, Vision change, Conjunctivae inflammation, Eyelid inflammation, Other, Redness ENT: No: Ear pain, Ear discharge, Nose pain, Nose discharge, Nose congestion, Mouth pain, Mouth swelling, Throat pain, Throat swelling, Other Respiratory: No: Cough, Dry, Shortness of breath, SOB with excertion, Wheezing, Hemoptysis, Pleuritic Pain, Sputum, Wheezing, Other Cardiovascular: No: Chest Pain, Palpitations, Orthopnea, Paroxysmal Noc. Dyspnea, Edema, Lt Headedness, Other Gastrointestinal: No: Nausea, Vomiting, Abdominal Pain, Diarrhea, Constipation, Melena, Hematochezia, Other Genitourinary: Dysuria, Frequency; No Incontinence, No Hematuria, No Retention, No Other Musculoskeletal: No: other, neck pain, shoulder pain, arm pain, back pain, hand pain, leg pain, foot pain Skin: No: Rash, Lesions, Jaundice, Bruising, Other Neurological: No: Weakness, Numbness, Incoordination, Change in speech, Conf usion, Seizures, Other Allergies: Coded Allergies: cephalexin (Verified Allergy, Unknown, RASH, HIVES, 08/29/20) clindamycin (Verified Allergy, Unknown, 08/25/20) REACTION UNKNOWN Scheduled Cephalexin (Keflex), 500 MG PO TID Gabapentin (Gabapentin), 1 TAB PO BID, (Reported) Losartan/Hydrochlorothiazide (Losartan-Hctz 100-25 Mg Tab), 1 EACH PO DAILY, (Reported) Metformin Hcl (Metformin Hcl), 1,000 MG PO BID, (Reported) Discontinued Medications Hydralazine Hcl (Hydralazine Hcl), 50 MG PO TID Discontinued Reason: Discontinue Insulin Glargine,Hum.rec.anlog (Lantus), 25 UNIT SQ BID Discontinued Reason: Discontinue Insulin Glargine,Hum.rec.anlog (Toujeo Solostar), 30 UNIT SQ DAILY24, (Reported) Discontinued Reason: Cancel Lisinopril (Lisinopril), 1 TAB PO DAILY, (Reported) Discontinued Reason: HOLD Objective Vitals and I/O Vital Sign - Last 24 Hours 12/06/21 12/06/21 12/06/21 12/06/21 07:35 07:35 07:37 08:33 Temp 100.9 Pulse 132 128 Resp 16 16 18 B/P (MAP) 144/80 (101) 144/80 Pulse Ox 97 95 88 O2 Delivery Nasal Cannula* Room Air* Nasal Cannula* O2 Flow Rate 2 2 FiO2 28 N/A 12/06/21 12/06/21 09:28 11:13 Temp 102.9 Pulse 126 Resp 19 B/P (MAP) 164/97 (119) Pulse Ox 91 O2 Delivery Nasal Cannula Room Air* O2 Flow Rate 2.00 0 FiO2 21 Intake and Output 12/06/21 07:00 Intake Total 5010 ml Output Total 775 ml Balance 4235 ml General: Alert, Oriented X3, Cooperative, No acute distress HEENT: Atraumatic, PERRLA, EOMI, Mucous membr. moist/pink Lungs: Clear to auscultation, Normal air movement Heart: Regular rate, Normal S1, Normal S2, No murmurs Abdomen: Normal bowel sounds, Soft, No hepatospenomegaly, Other (Lower abdominal tenderness mild, no CVA tenderness) Extremities: No clubbing, No cyanosis, No edema, Normal pulses Neuro: Normal speech, Strength at 5/5 X4 ext, Normal tone Psych/Mental Status: Mood NL All Results(Lab/Rad) Laboratory Tests Test 12/05/21 16:13 12/05/21 21:04 12/06/21 04:50 12/06/21 11:01 Bedside Glucose 236 170 308 White Blood Count 23.8 10^3/uL Red Blood Count 3.44 10^6/uL Hemoglobin 7.3 g/dL Hematocrit 24.3 % Mean Corpuscular Volume 70.6 fL Mean Corpuscular Hemoglobin 21.2 pg Mean Corpuscular Hemoglobin Concent 30.0 g/dL Red Cell Distribution Width 18.3 % Platelet Count 711 10^3/uL Mean Platelet Volume 9.8 fL Sodium Level 127 mmol/L Potassium Level 3.7 mmol/L Chloride Level 92.0 mmol/L Carbon Dioxide Level 22.6 mmol/L Glucose Level 178 mg/dL Blood Urea Nitrogen 25 mg/dL Creatinine 1.74 mg/dL Calcium Level 8.5 mg/dL Anion Gap 16.1 Estimated GFR () 38.3 Est GFR (CKD-EPI)(Non-Afr [place] Korean) 31.6 BUN/Creatinine Ratio 14.0 Current Medications Medications (Trade) Dose Ordered Sig/Nora Route PRN Reason Start Time Stop Time Status Last Admin Dose Admin Ketorolac Tromethamine (Toradol) 30 mg STK-MED ONCE .ROUTE 12/04/21 23:29 12/04/21 23:29 DC Ketorolac Tromethamine (Toradol) 30 mg OT ONCE IV 12/04/21 23:30 12/04/21 23:31 DC 12/04/21 23:53 Ceftriaxone Sodium 1000 mg/ Sodium Chloride 100 ml @ 200 mls/hr OT ONCE IV 12/04/21 23:30 12/04/21 23:59 DC 12/04/21 23:54 Ceftriaxone Sodium (Rocephin) 1,000 mg STK-MED ONCE .ROUTE 12/04/21 23:30 12/04/21 23:30 DC Sodium Chloride 100 ml @ ud STK-MED ONCE IV 12/04/21 23:31 12/04/21 23:32 DC Insulin Human Regular (Humulin R) 1 unit STK-MED ONCE .ROUTE 12/05/21 00:19 12/05/21 00:20 DC Insulin Human Regular (Humulin R) 12 unit STAT STAT IV 12/05/21 00:31 12/05/21 00:34 DC 12/05/21 00:36 Morphine Sulfate (Morphine Sulfate) 2 mg Q6 PRN IV PAIN 7 - 10 12/05/21 03:30 01/04/22 03:29 12/05/21 17:41 Acetaminophen (Tylenol) 650 mg Q4 PRN PO PAIN 1 - 3 12/05/21 06:30 01/04/22 06:29 12/05/21 06:20 Acetaminophen (Tylenol) 500 mg STK-MED ONCE PO 12/05/21 08:04 12/05/21 08:04 DC Acetaminophen (Tylenol) 500 mg STAT ONCE PO 12/05/21 08:30 12/05/21 08:31 DC 12/05/21 08:07 Insulin Human Regular (Humulin R) ACHS SQ 12/05/21 11:30 01/04/22 11:29 12/06/21 11:12 Insulin Glargine (Lantus) 25 unit Q24HRS SQ 12/05/21 08:24 01/04/22 08:23 12/06/21 08:31 Levofloxacin/ Dextrose 100 ml @ 100 mls/hr DAILY24 IV 12/05/21 08:30 01/04/22 08:29 12/06/21 08:32 Sodium Chloride 1,000 ml @ 100 mls/hr OT ONCE IV 12/05/21 08:30 12/05/21 09:32 DC 12/05/21 08:48 Acetaminophen (Tylenol) 1,000 mg Q6HR PRN PO FEVER>101 12/05/21 08:30 01/04/22 08:29 12/06/21 10:57 Gabapentin (Neurontin) 600 mg BID PO 12/05/21 09:30 01/04/22 09:29 12/06/21 08:33 Lisinopril (Zestril) 20 mg DAILY PO 12/05/21 09:40 01/04/22 09:39 12/06/21 08:33 Sodium Chloride 1,000 ml @ 100 mls/hr OT ONCE IV 12/05/21 09:30 12/05/21 09:38 DC Sodium Chloride 1,000 ml @ 100 mls/hr Q10H IV 12/05/21 10:00 01/04/22 09:59 12/05/21 21:15 Heparin Sodium (Porcine) (Heparin) 5,000 unit Q8HR SQ 12/05/21 14:00 01/04/22 13:59 12/06/21 05:12 Insulin Human Lispro (Humalog) 10 unit OT ONCE SQ 12/05/21 11:30 12/05/21 11:47 DC 12/05/21 11:33 Insulin Human Regular (Humulin R) 10 unit OT ONCE SQ 12/05/21 14:00 12/05/21 14:10 DC 12/05/21 13:52 Hydralazine HCl (Apresoline) 20 mg Q6HR PRN IV HYPERTENSION 12/06/21 05:30 01/06/22 05:30 12/06/21 05:17 Course Sepsis Screening Results: Posi: POSITIVE Sepsis Qualifier/Stage: SEPSIS RISK Duration or Total Time Spent w: 3 hrs Vitals & review Data Vital Sign - Last 24 Hours 12/06/21 12/06/21 12/06/21 12/06/21 07:35 07:35 07:37 08:33 Temp 100.9 Pulse 132 128 Resp 16 16 18 B/P (MAP) 144/80 (101) 144/80 Pulse Ox 97 95 88 O2 Delivery Nasal Cannula* Room Air* Nasal Cannula* O2 Flow Rate 2 2 FiO2 28 N/A 12/06/21 12/06/21 09:28 11:13 Temp 102.9 Pulse 126 Resp 19 B/P (MAP) 164/97 (119) Pulse Ox 91 O2 Delivery Nasal Cannula Room Air* O2 Flow Rate 2.00 0 FiO2 21 Intake and Output 12/06/21 07:00 Intake Total 5010 ml Output Total 775 ml Balance 4235 ml Laboratory Tests Test 12/04/21 23:35 12/05/21 00:00 12/05/21 00:52 12/05/21 08:57 White Blood Count 31.7 10^3/uL Red Blood Count 3.68 10^6/uL Hemoglobin 7.7 g/dL Hematocrit 25.9 % Mean Corpuscular Volume 70.4 fL Mean Corpuscular Hemoglobin 20.9 pg Mean Corpuscular Hemoglobin Concent 29.7 g/dL Red Cell Distribution Width 17.8 % Platelet Count 791 10^3/uL Mean Platelet Volume 9.5 fL Urine Collection Type RANDOM Urine Color YELLOW Urine Appearance TURBID Urine Bilirubin NEGATIVE Urine Ketones TRACE Urine Specific [place] 1.010 Urine pH 5.5 Urine Protein 2+ Urine Urobilinogen 0.2 E.U./dL Urine Nitrate POSITIVE Urine Leukocyte Esterase 1+ Urine Glucose (Auto)(UA) 500 mg/dL Urine Blood 1+ Urine RBC 0-2 RBC/HPF Urine WBC TooNumerousToCount WBC/HPF Urine Squamous Epithelial Cells MODERATE Urine Bacteria MANY Urine HCG, Qualitative NEGATIVE Sodium Level 126 mmol/L Potassium Level 4.4 mmol/L Chloride Level 89.0 mmol/L Carbon Dioxide Level 22.0 mmol/L Anion Gap 19.4 Blood Urea Nitrogen 27 mg/dL Creatinine 1.68 mg/dL Estimated GFR () 39.9 Est GFR (CKD-EPI)(Non-Afr [place] Korean) 32.9 BUN/Creatinine Ratio 16.0 Glucose Level 462 mg/dL Calcium Level 8.7 mg/dL Total Bilirubin 0.5 mg/dL Aspartate Amino Transf (AST/SGOT) 8 U/L Alanine Aminotransferase (ALT/SGPT) 20 U/L Alkaline Phosphatase 166 U/L Total Protein 7.6 g/dL Albumin 3.1 g/dL Globulin 4.5 Albumin/Globulin Ratio 0.688 Urine Opiates Screen NEGATIVE Urine Methadone Screen NEGATIVE Urine Barbiturates Screen NEGATIVE Urine Phencyclidine Screen NEGATIVE Ur Amphetamine/Methamphetamine NEGATIVE Urine MDMA Screen (Ecstasy) NEGATIVE Urine Benzodiazepines Screen NEGATIVE Urine Cocaine Metabolite Screen NEGATIVE Ur Tetrahydrocannabinol (THC) Scrn NEGATIVE Segmented Neutrophils 91 % Lymphocytes 3 % Monocytes 6 % Platelet Estimate INCREASED Platelet Morphology NORMAL SARS-CoV-2 Antigen (Rapid) NEGATIVE Bedside Glucose 397 Test 12/05/21 11:23 12/05/21 13:26 12/05/21 16:13 12/05/21 21:04 Glucose Level 484 mg/dL Bedside Glucose 358 236 170 Test 12/06/21 04:50 12/06/21 11:01 White Blood Count 23.8 10^3/uL Red Blood Count 3.44 10^6/uL Hemoglobin 7.3 g/dL Hematocrit 24.3 % Mean Corpuscular Volume 70.6 fL Mean Corpuscular Hemoglobin 21.2 pg Mean Corpuscular Hemoglobin Concent 30.0 g/dL Red Cell Distribution Width 18.3 % Platelet Count 711 10^3/uL Mean Platelet Volume 9.8 fL Sodium Level 127 mmol/L Potassium Level 3.7 mmol/L Chloride Level 92.0 mmol/L Carbon Dioxide Level 22.6 mmol/L Glucose Level 178 mg/dL Blood Urea Nitrogen 25 mg/dL Creatinine 1.74 mg/dL Calcium Level 8.5 mg/dL Anion Gap 16.1 Estimated GFR () 38.3 Est GFR (CKD-EPI)(Non-Afr [place]) 31.6 BUN/Creatinine Ratio 14.0 Bedside Glucose 308 Current Medications Medications (Trade) Dose Ordered Sig/Nora PRN Reason Start Time Stop Time Status Last Admin Acetaminophen (Tylenol) 650 mg Q4 PRN PAIN 1 - 3 12/05/21 06:30 01/04/22 06:29 12/05/21 06:20 Acetaminophen (Tylenol) 1,000 mg Q6HR PRN FEVER>101 12/05/21 08:30 01/04/22 08:29 12/06/21 10:57 Gabapentin (Neurontin) 600 mg BID 12/05/21 09:30 01/04/22 09:29 12/06/21 08:33 Heparin Sodium (Porcine) (Heparin) 5,000 unit Q8HR 12/05/21 14:00 01/04/22 13:59 12/06/21 05:12 Hydralazine HCl (Apresoline) 20 mg Q6HR PRN HYPERTENSION 12/06/21 05:30 01/06/22 05:30 12/06/21 05:17 Insulin Glargine (Lantus) 25 unit Q24HRS 12/05/21 08:24 01/04/22 08:23 12/06/21 08:31 Insulin Human Regular (Humulin R) ACHS 12/05/21 11:30 01/04/22 11:29 12/06/21 11:12 Levofloxacin/ Dextrose 100 ml @ 100 mls/hr DAILY24 12/05/21 08:30 01/04/22 08:29 12/06/21 08:32 Lisinopril (Zestril) 20 mg DAILY 12/05/21 09:40 01/04/22 09:39 12/06/21 08:33 Morphine Sulfate (Morphine Sulfate) 2 mg Q6 PRN PAIN 7 - 10 12/05/21 03:30 01/04/22 03:29 12/05/21 17:41 Sodium Chloride 1,000 ml @ 100 mls/hr Q10H 12/05/21 10:00 01/04/22 09:59 12/05/21 21:15 LEVEL 1 SEPSIS INFECTION CRITE: ABX Therapy, Fever/Chills, Urinary Tract Infection LEVEL 2-SIRS (LIST ALL THAT AP: WBC>[id number] Cardiovascular Evidence: Not Assessed or None Hematologic Evidence: None/Not assessed Hepatic Evidence: None/Not assessed Metabolic Evidence: None/Not assessed Neurological Evidence: None/Not assessed Respiratory Evidence: Need for O2 to keep>90% Renal Evidence: None/Not assessed O2 Sat by Pulse Oximetry: 91 Oxygen Flow Rate: 2.00 Assessment/Plan Assessment/Plan Assessment/Plan 45-year-old female with previous history of diabetes, nephrolithiasis, recurrent UTIs, hypertension and diabetic neuropathy presented to ER with complaints of feeling unwell for last 2 days fever starting yesterday associated with severe chills and right-sided abdominal and flank pain associated with dysuria, frequency, urgency and hesitancy. Sepsis: Patient was in sepsis at presentation with fever, tachycardia, WBC count of 31.7 at presentation. She received 2 L IV fluid and IV ceftriaxone 1 g x 1 and was admitted for further management. She is currently on levoflocaxin and vancomycin was added due to GPC in urine. Full culture results awaited Acute Pyelonephritis : Given her history of recurrent UTIs, diabetes, nephrolithiasis and symptoms of dysuria, hesitancy, fever and chills she has acute pyelonephritis. We will start her on IV hydration normal saline 100 cc/h in addition to IV levofloxacin 500 mg daily. Her urine and blood cultures were sent from the ER and we will be waiting for the sensitivity results. Right-sided nephrolithiasis and mild bilateral hydronephrosis: On CT scan patient has right-sided 2 to 3 mm stable lower pole renal calculus with mild bilateral hydronephrosis. Since this is not causing acute obstruction at this time we will set up follow-up appointment with urology at discharge. Patient prefers Dr. Mccann in [place] and we will set up an appointment at the time of discharge to follow-up with him. BRYAN: Patient had creatinine of 1.68 at presentation which is likely higher than her baseline. It is hard to know if it is BRYAN or CKD since baseline creatinine is not known we will repeat it tomorrow to see if it resolves. DM with Hyperglycemia: Patient had very high blood glucose levels of 462 at presentation. Lantus and sliding scale insulin has been started and will be adjusted based on the glucose readings. Hyponatremia: Patient has received IV fluids and we will monitor sodium levels for improvement. Right-sided wound on sole of foot: Wound care consulted Depression and previous suicidal ideation history: Psychiatry will be consulted DVT prophylaxis: We will start her on unfractionated heparin 8 hourly due to BRYAN. CODE STATUS: Full code Disposition: Home when ready CARSON BYRD MD December 06, 2021 14:38
[2021-12-06 15:12] VITALS: BP 131/76
--- NOTE | 2021-12-06 15:29 | NUR ---
DISCHARGE - PT REQUEST BOOGIE HYMAN TO ROOM TO VISIT WITH PATIENT. PATIENT REPORTS THAT SHE HAS HER SS# AND HER DL NOW. PATIENT INSTRUCTED THAT SHE WAS NEEDING TO SPEAK WITH SUSAN IN THE BUSINESS OFFICE. CM ATTEMPTED TO CONTACT SUSAN AND NO ANSWER. CM CONTACTED ROBERTO IN THE [facility] AND INFORMED OF PATIENT WITH INFORMATION THEY WERE NEEDING FOR SCREENING AND PER ROBERTO - SUSAN WILL NOT BE BACK UNTIL TOMORROW. CM INFORMED ROBERTO THAT PATIENT WAS PROBABLY BEING DISCHARGED THIS AFTERNOON. PER ROBERTO - SHE WILL COME UP AND GET PATIENT'S INFORMATION AND SCREEN PATIENT.
[2021-12-06] MEDS ORDERED: LEVO500T9 PO (15:53)
--- NOTE | 2021-12-06 15:55 | PRM.DC ---
Subjective Subjective Date of Discharge: December 06, 2021 Time of Request to Discharge: 15:50 Subjective Please see progress note dated 12/06/21. Chucho left AMA despite being explained all the risks of worsening clinical status. Exam Vital Signs Vital Signs Date Time Temp Pulse Resp B/P (MAP) Pulse Ox O2 Delivery O2 Flow Rate FiO2 12/06/21 15:12 99.3 103 19 131/76 (94) 90 Room Air* 0 21 VTE VTE Risk Total Score: >5 VTE Risk Score VTE Risk: Score 0-1 = Low Risk (Aggressive mobilization; early ambulation; no VTE prophylaxis required) Score 2: Moderate Risk (Intermittent/Pneumatic Compression Device OR Lovenox/Heparin/Coumadin) Score 3-4: High Risk (Intermittent/Pneumatic Compression Device AND Lovenox/Heparin/Coumadin) Score > or =5: Highest Risk (Intermittent/Pneumatic Compression Device AND Lovenox/Heparin/Coumadin) Antico:Hep/LMWH/Coum/Xarelto: Yes Mechanical device ordered: No Objective Vitals and I/O Vital Sign - Last 24 Hours 12/05/21 12/05/21 12/05/21 12/05/21 17:00 20:21 21:09 22:51 Temp 102.7 Pulse 120 108 Resp 16 20 B/P (MAP) 151/83 (105) Pulse Ox 85 91 O2 Delivery Room Air Room Air* Nasal Cannula* Nasal Cannula O2 Flow Rate 0.00 0 2 2.00 FiO2 21 28 12/06/21 12/06/21 12/06/21 12/06/21 00:47 04:44 05:09 05:17 Temp 98.9 99.7 Pulse 93 122 122 Resp 18 15 B/P (MAP) 140/81 (100) 195/103 (133) 195/103 Pulse Ox 95 95 O2 Delivery Nasal Cannula* Nasal Cannula* Nasal Cannula O2 Flow Rate 2 2 2.00 FiO2 28 28 12/06/21 12/06/21 12/06/21 12/06/21 07:35 07:35 07:37 08:33 Temp 100.9 Pulse 132 128 Resp 16 16 18 B/P (MAP) 144/80 (101) 144/80 Pulse Ox 97 95 88 O2 Delivery Nasal Cannula* Room Air* Nasal Cannula* O2 Flow Rate 2 2 FiO2 28 N/A 12/06/21 12/06/21 12/06/21 09:28 11:13 15:12 Temp 102.9 99.3 Pulse 126 103 Resp 19 19 B/P (MAP) 164/97 (119) 131/76 (94) Pulse Ox 91 90 O2 Delivery Nasal Cannula Room Air* Room Air* O2 Flow Rate 2.00 0 0 FiO2 21 21 Intake and Output 12/06/21 07:00 Intake Total 5010 ml Output Total 775 ml Balance 4235 ml General: Alert, Oriented X3, Cooperative, No acute distress HEENT: Atraumatic, PERRLA, EOMI, Mucous membr. moist/pink Lungs: Clear to auscultation, Normal air movement Heart: Regular rate, Normal S1, Normal S2, No murmurs Abdomen: Normal bowel sounds, Soft, No hepatospenomegaly, Other (Lower abdominal tenderness mild, no CVA tenderness) Extremities: No clubbing, No cyanosis, No edema, Normal pulses Neuro: Normal speech, Strength at 5/5 X4 ext, Normal tone Psych/Mental Status: Mood NL All Results(Lab/Rad) Laboratory Tests Test 12/05/21 16:13 12/05/21 21:04 12/06/21 04:50 12/06/21 11:01 Bedside Glucose 236 170 308 White Blood Count 23.8 10^3/uL Red Blood Count 3.44 10^6/uL Hemoglobin 7.3 g/dL Hematocrit 24.3 % Mean Corpuscular Volume 70.6 fL Mean Corpuscular Hemoglobin 21.2 pg Mean Corpuscular Hemoglobin Concent 30.0 g/dL Red Cell Distribution Width 18.3 % Platelet Count 711 10^3/uL Mean Platelet Volume 9.8 fL Sodium Level 127 mmol/L Potassium Level 3.7 mmol/L Chloride Level 92.0 mmol/L Carbon Dioxide Level 22.6 mmol/L Glucose Level 178 mg/dL Blood Urea Nitrogen 25 mg/dL Creatinine 1.74 mg/dL Calcium Level 8.5 mg/dL Anion Gap 16.1 Estimated GFR () 38.3 Est GFR (CKD-EPI)(Non-Afr [place]) 31.6 BUN/Creatinine Ratio 14.0 Current Medications Medications (Trade) Dose Ordered Sig/Nora Route PRN Reason Start Time Stop Time Status Last Admin Dose Admin Ketorolac Tromethamine (Toradol) 30 mg STK-MED ONCE .ROUTE 12/04/21 23:29 12/04/21 23:29 DC Ketorolac Tromethamine (Toradol) 30 mg OT ONCE IV 12/04/21 23:30 12/04/21 23:31 DC 12/04/21 23:53 Ceftriaxone Sodium 1000 mg/ Sodium Chloride 100 ml @ 200 mls/hr OT ONCE IV 12/04/21 23:30 12/04/21 23:59 DC 12/04/21 23:54 Ceftriaxone Sodium (Rocephin) 1,000 mg STK-MED ONCE .ROUTE 12/04/21 23:30 12/04/21 23:30 DC Sodium Chloride 100 ml @ ud STK-MED ONCE IV 12/04/21 23:31 12/04/21 23:32 DC Insulin Human Regular (Humulin R) 1 unit STK-MED ONCE .ROUTE 12/05/21 00:19 12/05/21 00:20 DC Insulin Human Regular (Humulin R) 12 unit STAT STAT IV 12/05/21 00:31 12/05/21 00:34 DC 12/05/21 00:36 Morphine Sulfate (Morphine Sulfate) 2 mg Q6 PRN IV PAIN 7 - 10 12/05/21 03:30 01/04/22 03:29 12/05/21 17:41 Acetaminophen (Tylenol) 650 mg Q4 PRN PO PAIN 1 - 3 12/05/21 06:30 01/04/22 06:29 12/05/21 06:20 Acetaminophen (Tylenol) 500 mg STK-MED ONCE PO 12/05/21 08:04 12/05/21 08:04 DC Acetaminophen (Tylenol) 500 mg STAT ONCE PO 12/05/21 08:30 12/05/21 08:31 DC 12/05/21 08:07 Insulin Human Regular (Humulin R) ACHS SQ 12/05/21 11:30 01/04/22 11:29 12/06/21 11:12 Insulin Glargine (Lantus) 25 unit Q24HRS SQ 12/05/21 08:24 01/04/22 08:23 12/06/21 08:31 Levofloxacin/ Dextrose 100 ml @ 100 mls/hr DAILY24 IV 12/05/21 08:30 01/04/22 08:29 12/06/21 08:32 Sodium Chloride 1,000 ml @ 100 mls/hr OT ONCE IV 12/05/21 08:30 12/05/21 09:32 DC 12/05/21 08:48 Acetaminophen (Tylenol) 1,000 mg Q6HR PRN PO FEVER>101 12/05/21 08:30 01/04/22 08:29 12/06/21 10:57 Gabapentin (Neurontin) 600 mg BID PO 12/05/21 09:30 01/04/22 09:29 12/06/21 08:33 Lisinopril (Zestril) 20 mg DAILY PO 12/05/21 09:40 01/04/22 09:39 12/06/21 08:33 Sodium Chloride 1,000 ml @ 100 mls/hr OT ONCE IV 12/05/21 09:30 12/05/21 09:38 DC Sodium Chloride 1,000 ml @ 100 mls/hr Q10H IV 12/05/21 10:00 01/04/22 09:59 12/05/21 21:15 Heparin Sodium (Porcine) (Heparin) 5,000 unit Q8HR SQ 12/05/21 14:00 01/04/22 13:59 12/06/21 05:12 Insulin Human Lispro (Humalog) 10 unit OT ONCE SQ 12/05/21 11:30 12/05/21 11:47 DC 12/05/21 11:33 Insulin Human Regular (Humulin R) 10 unit OT ONCE SQ 12/05/21 14:00 12/05/21 14:10 DC 12/05/21 13:52 Hydralazine HCl (Apresoline) 20 mg Q6HR PRN IV HYPERTENSION 12/06/21 05:30 01/06/22 05:30 12/06/21 05:17 Medication Reconciliation Scheduled Cephalexin (Keflex), 500 MG PO TID Gabapentin (Gabapentin), 1 TAB PO BID, (Reported) Levofloxacin (Levaquin), 500 MG PO DAILY Losartan/Hydrochlorothiazide (Losartan-Hctz 100-25 Mg Tab), 1 EACH PO DAILY, (Reported) Metformin Hcl (Metformin Hcl), 1,000 MG PO BID, (Reported) Discontinued Medications Hydralazine Hcl (Hydralazine Hcl), 50 MG PO TID Discontinued Reason: Discontinue Insulin Glargine,Hum.rec.anlog (Lantus), 25 UNIT SQ BID Discontinued Reason: Discontinue Insulin Glargine,Hum.rec.anlog (Toujeo Solostar), 30 UNIT SQ DAILY24, (Reported) Discontinued Reason: Cancel Lisinopril (Lisinopril), 1 TAB PO DAILY, (Reported) Discontinued Reason: HOLD Plan Plan My Orders - CARSON BYRD MD Procedure Category Date Status Time Cbc W/O Diff LAB 12/07/21 Verified 05:00 Basic Metabolic Panel LAB 12/07/21 Verified 05:00 Vancomycin/Water For PHA 12/06/21 In Process Inj (Peg) (Vancomyc 14:30 [place] Pt Dc DISCHARGE 12/06/21 Transmitted Order([place]/Lwbs) 15:50 CARSON BYRD MD December 06, 2021 15:54
--- NOTE | 2021-12-06 16:18 | NUR ---
AMA PT REQUESTS TO LEAVE AMA, STATES, "I AM READY TO GO I CAN TAKE CARE OF MY FEVER AND ANTIBIOTICS AT HOME." DR BYRD NOTIFIED, SHE WENT AND SPOKE WITH THE PATIENT AT BEDSIDE. PT STATES, "I WILL FINISH MY ANTIBIOTIC AND THEN I WILL GO." PT EDUCATED ON LEAVING AGAINST MEDICAL ADVICE, VERBALIZED UNDERSTANDING. PT SIGNED AMA FORM AT 1550. WILL CONT WITH PLAN OF CARE.
[2021-12-06 16:45] VITALS: BP 131/76
--- NOTE | 2021-12-06 16:45 | NUR ---
AMA IV D/C'D PER ASEPTIC TECHNIQUE, NO S/S OF INFECTION NOTED TO SITE. PT OFF OF UNIT VIA AMBULATION. NO S/S OF DISTRESS NOTED. PRESCRIPTION FOR ANTIBIOTIC SENT WITH PT. RELINQUISHED CARE OF PT .
--- NOTE | 2021-12-07 08:47 | NUR ---
DISCHARGE PLAN - [facility] CM FAXEDE COMPLETE CLINICALS WITH APPT TIMES TO [facility] [email or web address]. FAX CONFIRMATION CONFIRMED COMPLETE.
== END 2021-12-06 15:50 | disposition left against medical advice (07) | DRG 872 ==
LOC: ER 22:43 → MS 12-05 01:32
PROVIDERS: ADMIT Family Medicine; ATTEND Family Medicine
DX: A41.9 Sepsis, unspecified organism (principal); E87.1 Hypo-osmolality and hyponatremia; N13.6 Pyonephrosis; N17.9 Acute kidney failure, unspecified; D64.9 Anemia, unspecified; E11.40 Type 2 diabetes mellitus with diabetic neuropathy, unspecified; E11.65 Type 2 diabetes mellitus with hyperglycemia; F32.A Depression, unspecified; I25.10 Atherosclerotic heart disease of native coronary artery without angina pectoris; I50.9 Heart failure, unspecified; I11.0 Hypertensive heart disease with heart failure; K21.9 Gastro-esophageal reflux disease without esophagitis; Z20.822 Contact with and (suspected) exposure to COVID-19; R79.89 Other specified abnormal findings of blood chemistry; Z83.3 Family history of diabetes mellitus; Z82.49 Family history of ischemic heart disease and other diseases of the circulatory system; Z87.442 Personal history of urinary calculi; Z79.899 Other long term (current) drug therapy; Z98.891 History of uterine scar from previous surgery; Z79.4 Long term (current) use of insulin; S91.301A Unspecified open wound, right foot, initial encounter; X58.XXXA Exposure to other specified factors, initial encounter; Y93.89 Activity, other specified; Y92.89 Other specified places as the place of occurrence of the external cause; Y99.8 Other external cause status
CPT/HCPCS: 36415; 71045; 74176; 80048; 80053; 80307; 81001; 81025; 82947; 82948; 85027; 87040; 87070; 87077; 87086; 87186; 87426; 99285; G0378; J0360; J0696; J1644; J1815; J1885; J1956; J3490; J7030; J7120; A9270